=== PATIENT | male | born 1985 | race Caucasian/White ===

== ENCOUNTER 2016-10-23 21:32 | Emergency (ER) | payer SELFPAY ==
[~2016-10-23] VITALS: Ht 175.3 cm; Wt 72.6 kg
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
[2016-10-23] MEDS ORDERED: NS IV 1000 ML 1,000 ML IV SCH (22:00)
[2016-10-23] MEDS ORDERED: KETOROLAC 30 MG/ML VIAL IVP ONE ×2 (22:00→22:45)
[2016-10-23 22:19] LABS: BASOPHILS % (AUTO) 0 % (0-10); EOSINOPHILS # (AUTO) 0.1 10^3/uL (0.0-0.3); EOSINOPHILS % (AUTO) 1 % (0-10); LYMPHOCYTES # (AUTO) 1.9 X 10^3 (1.0-4.0); LYMPHOCYTES % (AUTO) 16 % (12-44); MEAN CORPUSCULAR HEMOGLOBIN 30 PG (25-34); MEAN CORPUSCULAR HGB CONC 34 G/DL (32-36); MEAN CORPUSCULAR VOLUME 87 FL (80-99); MEAN PLATELET VOLUME 10.9 FL (7.4-10.4); MONOCYTES # (AUTO) 1.6 X 10^3 (0.0-1.0); MONOCYTES % (AUTO) 13 % (0-12); NEUTROPHILS # (AUTO) 8.7 X 10^3 (1.8-7.8); NEUTROPHILS % (AUTO) 70 % (42-75); PLATELET COUNT 205 10^3/uL (130-400); RED BLOOD COUNT 4.45 10^6/uL (4.35-5.85); RED CELL DISTRIBUTION WIDTH 13.1 % (10.0-14.5); WHITE BLOOD COUNT 12.4 10^3/uL (4.3-11.0)
[2016-10-23 22:40] LABS: ALANINE AMINOTRANSFERASE 11 U/L (0-55); ANION GAP 11 MMOL/L (5-14); ASPARTATE AMINO TRANSFERASE 16 U/L (5-34); BILIRUBIN,TOTAL 0.6 MG/DL (0.1-1.0); BLOOD UREA NITROGEN 14 MG/DL (7-18); BUN/CREATININE RATIO 14 (0-20); CALCIUM 8.6 MG/DL (8.5-10.1); CARBON DIOXIDE 23 MMOL/L (21-32); CHLORIDE 104 MMOL/L (98-107); CREATININE SERUM 0.98 MG/DL (0.60-1.30); GFR ESTIMATED > 60; GLUCOSE 94 MG/DL (70-105); HEMOLYSIS 22 (-100-29); ICTERUS 0.5 (-100-1.9); LIPEMIA 16 (-100-49); POTASSIUM 3.6 MMOL/L (3.6-5.0); SODIUM 138 MMOL/L (135-145); TOTAL PROTEIN 6.7 GM/DL (6.4-8.2)
[2016-10-23] MEDS ORDERED: cefTRIAXone INJECTION 1,000 MG in NS (IVPB) 50 ML IV ONE (22:45)
[2016-10-23] MEDS ORDERED: AMOX-358 PO (22:45)
[2016-10-23] MEDS ORDERED: fentaNYL INJECTION 100 MCG/2 ML AMP IVP ONE (22:45)
[2016-10-23 23:15] VITALS: BP 105/69
--- NOTE | 2016-10-24 06:26 | Diagnostic Imaging Report ---
INDICATION: Leg pain and redness. FINDINGS: There is normal color flow enhancement from the external iliac vein to the ankles bilaterally. Calf compression shows normal augmentation of flow. Popliteal region shows no evidence of cyst. IMPRESSION: Normal bilateral lower extremity color duplex venous ultrasound. These findings are concordant with the preliminary report. Dictated by: Dictated on workstation # [id number]
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
== END 2016-10-23 23:15 | disposition home or self-care (01) ==
LOC: ER 21:37
DX: L03.115 Cellulitis of right lower limb (principal); L03.116 Cellulitis of left lower limb
CPT/HCPCS: 36415; 80053; 85025; 93970

== ENCOUNTER 2016-10-24 23:48 | Emergency (ER) | payer SELFPAY ==
[~2016-10-24] VITALS: Ht 175.3 cm; Wt 72.6 kg
[~2016-10-24 23:48] MED LIST: AMOX-358 PO
[2016-10-25 00:29] LABS: BASOPHILS % (AUTO) 0 % (0-10); EOSINOPHILS # (AUTO) 0.2 10^3/uL (0.0-0.3); EOSINOPHILS % (AUTO) 3 % (0-10); LYMPHOCYTES # (AUTO) 2.8 X 10^3 (1.0-4.0); LYMPHOCYTES % (AUTO) 30 % (12-44); MEAN CORPUSCULAR HEMOGLOBIN 30 PG (25-34); MEAN CORPUSCULAR HGB CONC 34 G/DL (32-36); MEAN CORPUSCULAR VOLUME 89 FL (80-99); MEAN PLATELET VOLUME 11.3 FL (7.4-10.4); MONOCYTES # (AUTO) 0.9 X 10^3 (0.0-1.0); MONOCYTES % (AUTO) 10 % (0-12); NEUTROPHILS # (AUTO) 5.4 X 10^3 (1.8-7.8); NEUTROPHILS % (AUTO) 58 % (42-75); PLATELET COUNT 224 10^3/uL (130-400); RED CELL DISTRIBUTION WIDTH 13.6 % (10.0-14.5); WHITE BLOOD COUNT 9.4 10^3/uL (4.3-11.0)
[2016-10-25 00:47] LABS: ALANINE AMINOTRANSFERASE 11 U/L (0-55); ANION GAP 10 MMOL/L (5-14); ASPARTATE AMINO TRANSFERASE 14 U/L (5-34); BILIRUBIN,TOTAL 0.3 MG/DL (0.1-1.0); BLOOD UREA NITROGEN 10 MG/DL (7-18); BUN/CREATININE RATIO 12 (0-20); CALCIUM 8.9 MG/DL (8.5-10.1); CARBON DIOXIDE 26 MMOL/L (21-32); CHLORIDE 107 MMOL/L (98-107); CREATININE SERUM 0.85 MG/DL (0.60-1.30); GFR ESTIMATED > 60; GLUCOSE 129 MG/DL (70-105); HEMOLYSIS 23 (-100-29); ICTERUS 0.2 (-100-1.9); LIPEMIA 23 (-100-49); POTASSIUM 3.8 MMOL/L (3.6-5.0); SODIUM 143 MMOL/L (135-145); TOTAL PROTEIN 7.2 GM/DL (6.4-8.2); hs C REACTIVE PROTEIN 3.74 MG/DL (0.00-0.50)
[2016-10-25 00:52] LABS: ERYTHROCYTE SEDIMENTATION RATE 7 MM/HR (0-15)
[2016-10-25] MEDS ORDERED: RX-TRIMETH/SULFA. 160-800 MG (BACTRIM DS) TAB PPK#2 PO STA (01:10)
[2016-10-25] MEDS ORDERED: RX-CEPHALEXIN (KEFLEX) 250 MG CAP PPK#4 PO STA (01:11)
[2016-10-25] MEDS ORDERED: KETOROLAC 30 MG/ML VIAL IVP ONE (01:15)
[2016-10-25] MEDS ORDERED: CLINDAMYCIN INJECTION 900 MG in NS (IVPB) 50 ML IV ONE (01:15)
[2016-10-25] MEDS ORDERED: CEPH-507 PO (01:49)
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
[2016-10-25 02:25] VITALS: BP 103/61
== END 2016-10-25 02:25 | disposition home or self-care (01) ==
LOC: EDUNIT# 23:48 → ER 23:50
DX: L03.115 Cellulitis of right lower limb (principal); L03.116 Cellulitis of left lower limb; F17.210 Nicotine dependence, cigarettes, uncomplicated
CPT/HCPCS: 36415; 80053; 85025; 85652; 86141